=== PATIENT | female | born 1960 | race African-American/Black ===

== ENCOUNTER 2016-11-16 10:02 | Emergency (ER) | payer BC, MEDICAID ==
[~2016-11-16] VITALS: Ht 185.4 cm; Wt 113.4 kg
[~2016-11-16 10:02] MED LIST: ASPIRIN81 M1 PO; ATENOLOL25 MG PO; ATIVAN0.5 MG PO; CATAPRES0.1 MG PO; CLARITIN10 MG PO; FERROUS SULFAT325 MG PO; FLEXERIL10 MG PO; LIORESAL10 MG PO; MOTRIN800 MG PO; NEURONTIN100 MG PO; NEURONTIN400 MG PO; NORCO 10/325 MG1 TAB PO; NORCO 5/325 MG1 TAB PO; NORVASC10 MG PO; NORVASC5 MG PO; ORETIC25 MG PO; PROAIR HFA0.09 MG/Ac IH; SOMA350 MG PO; TEKTURNA300 MG PO; TENORMIN100 MG PO; THERAGRAN1 TA2 PO; VITAMIN D31000 IU PO; XANAX0.25 MG PO; ZESTRIL20 MG PO
[2016-11-16 10:12] VITALS: BP 151/89
--- NOTE | 2016-11-16 11:36 | NUR ---
PT AMBULATED TO ER BED 08.
[2016-11-16 12:26] VITALS: BP 151/89
--- NOTE | 2016-11-16 12:26 | NUR ---
PATIENT IS A 56 YO FEMALE BIB SELF FOR HEADACHE AND COUGH AWAKE AND ALERT.
--- NOTE | 2016-11-16 12:27 | NUR ---
Patient discharged with v/s stable. Written and verbal after care instructions given and explained. Patient alert, oriented and verbalized understanding of instructions. Ambulatory with steady gait. All questions addressed prior to discharge. ID band removed. Patient advised to follow up with PMD. Rx of TYLENOL AND TAMIFLU given. Patient educated on indication of medication including possible reaction and side effects. Opportunity to ask questions provided and answered.
--- NOTE | 2016-11-16 12:28 | NUR ---
Chart checked and completed. The patient's care was reviewed and supervised by Kyle Solorzano RN.
== END 2016-11-16 12:05 | disposition home or self-care (01) ==
LOC: MED 10:12
DX: J06.9 Acute upper respiratory infection, unspecified (principal); I10 Essential (primary) hypertension; Z88.6 Allergy status to analgesic agent; Z88.8 Allergy status to other drugs, medicaments and biological substances

== ENCOUNTER 2017-01-04 17:25 | Emergency (ER) | payer MEDICAID, OTHER ==
[~2017-01-04] VITALS: Ht 182.9 cm; Wt 117.5 kg
[~2017-01-04 17:25] MED LIST changes: +ALBU-136 IH; +ALIS300T PO; +AMLO10TA PO; -ASPIRIN81 M1 PO; +ATEN100T6 PO; -ATENOLOL25 MG PO; -ATIVAN0.5 MG PO; -CATAPRES0.1 MG PO; -CLARITIN10 MG PO; +FERR325E14 PO; -FERROUS SULFAT325 MG PO; -FLEXERIL10 MG PO; +HYDR-4452 PO; +IBUP-974 PO; -LIORESAL10 MG PO; +LISI-420 PO; -MOTRIN800 MG PO; -NEURONTIN100 MG PO; -NEURONTIN400 MG PO; -NORCO 10/325 MG1 TAB PO; -NORCO 5/325 MG1 TAB PO; -NORVASC10 MG PO; -NORVASC5 MG PO; +ORE25 PO; -ORETIC25 MG PO; -PROAIR HFA0.09 MG/Ac IH; -SOMA350 MG PO; -TEKTURNA300 MG PO; -TENORMIN100 MG PO; +THE PO; -THERAGRAN1 TA2 PO; -VITAMIN D31000 IU PO; -XANAX0.25 MG PO; -ZESTRIL20 MG PO
[2017-01-04 17:32] VITALS: BP 170/86
--- NOTE | 2017-01-04 17:40 | NUR ---
PATIENT AMBULATED TO ER BED 4.
--- NOTE | 2017-01-04 17:45 | NUR ---
Patient being evaluated by physician at bedside.
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
--- NOTE | 2017-01-04 17:58 | NUR ---
WENT TO XRAY ACCOMPANIED BY DIRECTOR OF PUBLICATIONS
--- NOTE | 2017-01-04 18:11 | NUR ---
PT BACK FROM XRAY
--- NOTE | 2017-01-04 18:28 | NUR ---
DR CAMPBELL AT BEDSIDE
[2017-01-04 18:39] VITALS: BP 160/86
--- NOTE | 2017-01-04 18:39 | NUR ---
Patient discharged with v/s stable. Written and verbal after care instructions given and explained. Patient alert, oriented and verbalized understanding of instructions. Ambulatory with steady gait. All questions addressed prior to discharge. ID band removed. Patient advised to follow up with PMD. Rx of MOTRIN given. Patient educated on indication of medication including possible reaction and side effects. Opportunity to ask questions provided and answered. ADVISED PT TO AVOID HEAVY LIFTING UNTIL PAIN SUBSIDES AND PT AGREED W/ IT.
== END 2017-01-04 18:33 | disposition home or self-care (01) ==
LOC: MED 17:25
DX: S70.11XA Contusion of right thigh, initial encounter (principal); S80.01XA Contusion of right knee, initial encounter; I10 Essential (primary) hypertension; E07.9 Disorder of thyroid, unspecified; Z88.6 Allergy status to analgesic agent; W22.8XXA Striking against or struck by other objects, initial encounter; Y92.69 Other specified industrial and construction area as the place of occurrence of the external cause
CPT/HCPCS: 73562; 99284